=== PATIENT | male | born 1975 | race Caucasian/White ===

== ENCOUNTER 2021-12-04 07:01 | Emergency (ER) | payer BC ==
[~2021-12-04] VITALS: Ht 175.3 cm; Wt 81.6 kg
[2021-12-04] MEDS ORDERED: CLON0.5T PO (07:16)
[2021-12-04] MEDS ORDERED: ALPR0.255 PO (07:16)
[2021-12-04 07:42] LABS: HEMATOCRIT 40.5 % (36.7-47.1); MEAN CORPUSCULAR VOLUME 86.9 fL (73.0-96.2); PLATELET COUNT (AUTO) 156 K/uL (152-348)
[2021-12-04 07:48] LABS: CREATININE 0.9 mg/dL (0.6-1.3); POTASSIUM 4.2 mmol/L (3.5-5.1)
[2021-12-04] MEDS ORDERED: ONDANSETRON 4 MG/2 ML VIAL IV ONE (08:00)
[2021-12-04] MEDS ORDERED: IV NORMAL SALINE 1000 ML BAG IV ONE (08:00)
[2021-12-04 08:04] LABS: BILIRUBIN,DIRECT 0.1 mg/dL (0.0-0.2); BILIRUBIN,TOTAL 0.5 mg/dL (0.2-1.0); TOTAL PROTEIN, SERUM 7.3 g/dL (6.4-8.2)
[2021-12-04] MEDS ORDERED: ONDANSETRON 4 MG/2 ML VIAL ONE (08:08)
[2021-12-04] MEDS ORDERED: AZITHROMYCIN 250 MG TABLET PO ONE (08:30)
[2021-12-04] MEDS ORDERED: AZITHROMYCIN 250 MG TABLET ONE (08:51)
[2021-12-04] MEDS ORDERED: GUAI5SYR4 PO ×3 (09:14→10:11)
[2021-12-04] MEDS ORDERED: CEPH500C2 PO (09:14)
[2021-12-04] MEDS ORDERED: ONDA4TAB5 PO (09:20)
[2021-12-04] MEDS ORDERED: AZIT500T PO (09:20)
--- NOTE | 2021-12-04 10:38 | NUR ---
IV removed. Catheter intact and site benign. Pressure and 4x4 gauze applied to site. No bleeding noted.
== END 2021-12-04 11:33 | disposition home or self-care (01) ==
LOC: ER 07:08
DX: J18.9 Pneumonia, unspecified organism (principal); F41.9 Anxiety disorder, unspecified; Z79.899 Other long term (current) drug therapy; Z20.822 Contact with and (suspected) exposure to COVID-19
CPT/HCPCS: 36415; 71045; 80048; 80076; 82728; 83615; 83880; 84484; 85025; 85379; 86140; 93005; 99285; J2405; U0003; 70030-TC; A4663; Q0144